=== PATIENT | female | born 1995 | race Hispanic/Latino ===

== ENCOUNTER 2024-03-08 19:06 | Emergency (ER) | payer OTHER ==
[~2024-03-08] VITALS: Ht 170.2 cm; Wt 77.1 kg
[2024-03-08 19:30] VITALS: PULSE 96; RESP 18; TEMP 97.9
[2024-03-08] MEDS ORDERED: VENTOLIN HFA18 GM INH (21:31)
[2024-03-08] MEDS ORDERED: CORICIDIN COLD1 EACH PO (21:32)
[2024-03-08 22:16] VITALS: BP 127/79; PULSE 78; RESP 17; TEMP 98.2; O2SAT 98
== END 2024-03-08 21:55 | disposition home or self-care (01) ==
LOC: FSED 19:42
DX: R05.9 Cough, unspecified (principal)
CPT/HCPCS: 71046; 99282